=== PATIENT | male | born 2000 | race African-American/Black ===

== ENCOUNTER 2020-07-29 13:28 | Emergency (ER) | payer SELFPAY ==
[~2020-07-29] VITALS: Ht 205.7 cm; Wt 112.0 kg
--- NOTE | 2020-07-29 13:50 | NUR ---
C/O SORE THROAT X3 DAYS, DENIES SICK CONTACTS.
[2020-07-29] MEDS ORDERED: KETOROLAC 30 MG/1 ML ONE (14:09)
[2020-07-29] MEDS ORDERED: DEXAMETHASONE 4 MG/ML, 5ML ONE (14:09)
[2020-07-29] MEDS ORDERED: SODIUM CHLORIDE 0.9% 1,000ML IVBOLUS ONE (14:30)
[2020-07-29] MEDS ORDERED: DEXAMETHASONE 4 MG/ML, 1ML IVPush ONE (14:30)
[2020-07-29] MEDS ORDERED: KETOROLAC 30 MG/1 ML IVPush ONE (14:30)
--- NOTE | 2020-07-29 15:24 | NUR ---
Multiple attempt at IV. Requested u/s IV.
[2020-07-29 15:39] LABS: ANION GAP 5 mmol/L (5-15); CALCIUM 9.5 mg/dL (8.5-10.1); CHLORIDE 105 mmol/L (98-107); CREATININE 1.11 mg/dL (0.7-1.3)
--- NOTE | 2020-07-29 16:06 | NUR ---
IV STARTED VIA U/S, IVF WO, MEDICATED PER ORDER. ON CONT PULSE OX/B/P. PT IN NAD, WATCHING MOVIE ON PHONE, SPEAKS FULL SENTENCES, AIRWAY CLEAR. RR EQUAL AND UNLABORED.
[2020-07-29 17:19] VITALS: BP 135/88
--- NOTE | 2020-07-29 17:19 | NUR ---
IV DC CATH INTACT, 1 LITER NS INFUSED. PT DC HOME WITH INSTRUCT, PT VERBALIZES UNDERSTANDING TO RETURN TO ER IF WORSE OR CONCERNS.
== END 2020-07-29 17:21 | disposition home or self-care (01) ==
LOC: ED 16:25
DX: J02.0 Streptococcal pharyngitis (principal); R05 Cough; R51.9 Headache, unspecified; F17.200 Nicotine dependence, unspecified, uncomplicated
CPT/HCPCS: 36415; 80048; 86308; 96361; 96374; 96375; 99284; J1100; J1885; J7030

== ENCOUNTER 2020-08-02 10:10 | Emergency (ER) | payer SELFPAY ==
[~2020-08-02] VITALS: Ht 172.7 cm; Wt 111.0 kg
--- NOTE | 2020-08-02 10:45 | NUR ---
REFRACTORY MANAGER: PT AMBULATORY TO ROOM FROM LOBBY
[2020-08-02] MEDS ORDERED: DEXAMETHASONE 4 MG TABLET PO ONE (11:00)
[2020-08-02] MEDS ORDERED: DEXAMETHASONE 4 MG TABLET ONE (11:12)
[2020-08-02 11:18] VITALS: BP 138/88
--- NOTE | 2020-08-02 11:54 | NUR ---
PT REC'VD DISCHARGE INSTRUCTIONS AND EDUCATION. PT HAD NO FURTHER QUESTIONS AT THIS TIME.
--- NOTE | 2020-08-02 12:04 | NUR ---
PT AMBULATED TO AK AREA, STEADY GAIT.
== END 2020-08-02 12:15 | disposition home or self-care (01) ==
LOC: ED 11:04
DX: J03.00 Acute streptococcal tonsillitis, unspecified (principal)
CPT/HCPCS: 99283